=== PATIENT | female | born 1940 | race Caucasian/White ===

== ENCOUNTER 2021-11-06 11:45 | Emergency (ER) | payer MEDICARE, OTHER, SELFPAY ==
[2021-11-06 11:57] VITALS: BP 151/75; PULSE 68; RESP 16; TEMP 36.3; O2SAT 99; BMI 23.0
--- NOTE | 2021-11-06 12:07 | DI.RAD.S_ITS ---
PROCEDURE: XR HUMERUS RT 2V INDICATIONS: fall with pain and bruising TECHNIQUE: 2 views of the humerus were acquired. COMPARISON: None. FINDINGS: Bones: No acute fracture or dislocation. Severe degenerative changes are present at the glenohumeral joint including deformity of the femoral head, osteophytosis and heterotopic ossification.. No other suspicious bony lesions. Soft tissues: No suspicious soft tissue calcifications. IMPRESSION: Severe glenohumeral joint deformity. No acute radiographic findings. If pain persists, followup imaging in 5-7 days is recommended to exclude occult fracture. Dictated by: Mariola Kenney M.D. on 11/06/2021 at 13:03 Approved by: Mariola Kenney M.D. on 11/06/2021 at 13:04
--- NOTE | 2021-11-06 12:07 | DI.RAD.S_ITS ---
PROCEDURE: XR HAND RT MIN 3V INDICATIONS: fall with pain, swelling TECHNIQUE: 3 views of the hand(s) acquired. COMPARISON: None. FINDINGS: Bones: Severe degenerative changes are present at the interphalangeal joints, 1st CMC joint, and triscaphe joint. There is likely ulnar styloid fracture; however this may be a chronic non unified fracture. No other acute fractures visualized. Soft tissues: No suspicious soft tissue calcifications. IMPRESSION: 1. Chronic appearing ulnar styloid fracture. However, if the patient endorses pinpoint tenderness in this region, acute fracture could be suspected. 2. No other displaced fractures visualized. 3. 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 Dictated by: Mariola Kenney M.D. on 11/06/2021 at 13:04 Approved by: Mariola Kenney M.D. on 11/06/2021 at 13:06
--- NOTE | 2021-11-06 13:50 | ED_ITS ---
HPI - Extremity Injury (Upper) General Chief Complaint: Extremity Injury, Upper Stated Complaint: fell and injured right hand Time Seen by Provider: 11/06/21 12:07 Source: patient Mode of arrival: Ambulatory History of Present Illness HPI narrative: 81-year-old female nonsmoker with noncontributing medical history presents with her daughter and a chief complaint of a mechanical, ground level fall just prior to arrival in which she injured the lateral part of her upper arm and her right hand. She states that she got her feet head of herself while attempting to enter a trailerand tripped and fell onto her right hand and arm. She denies any head neck or back pain. She denies any chest pain or shortness of breath. She denies prodromal symptoms such as dizziness, weakness or lightheadedness. She has no pain in her shoulder but complains of some pain surrounding a small bruise in the lateral portion of her upper arm, pain is worse with motion and improves with rest. She has little pain in her elbow but does have some swellin g and also has pain in the fingers of her right hand which are worse with motion and improves with rest. Related Data Allergies Allergy/AdvReac Type Severity Reaction Status Date / Time Sulfa (Sulfonamide Allergy Verified 11/06/21 11:57 Antibiotics) Review of Systems Review of Systems Narrative: GENERAL: Denies chills, fatigue, malaise, fever, sweats. HEENT: Denies sinus pain, ear pain, sore throat, difficulty swallowing, dizzin ess. RESPIRATORY: Denies dyspnea, cough, wheezing, hemoptysis, sputum. CARDIOVASCULAR: Denies chest pain, palpitations, orthopnea, edema, GASTROINTESTINAL: Denies nausea, vomiting, abdominal pain, diarrhea, constipation, melena. : Denies dysuria, frequency, incontinence, hematuria, urinary retention. MUSCULOSKELETAL: See HPI SKIN: Denies rash, skin lesions, or other NEUROLOGIC: Denies weakness, headache, numbness, change in speech, confusion, seizures, incoordination. PSYCHIATRIC: No concerning psychosocial issues. 12 point review of systems is negative except for those stated above Patient History Social History Smoking Status: Never smoker Smoking Status: Never smoker Substance Use Type: does not use Exam Narrative Exam Narrative: GENERAL: [81] year old patient appears stated age. Well-developed patient, in mild distress. GCS 15 HEAD: Atraumatic. Normocephalic. EYES: Pupils equal round and reactive. Extraocular motions intact. No scleral icterus. No injection or drainage. ENT: Nose without bleeding, purulent drainage. Throat without erythema, tonsillar hypertrophy or exudate. Airway patent. NECK: Trachea midline. Non tender CARDIOVASCULAR: Regular rate and rhythm without murmurs, gallops, or rubs. RESPIRATORY: Clear to auscultation. Breath sounds equal bilaterally. No wheezes, rales, or rhonchi. GASTROINTESTINAL: Abdomen soft, non-tender, nondistended. EXTREMITIES: Full painless range of motion at right shoulder. There is a small bruise a few cm across with minimal swelling in the lateral aspect of her right upper arm. Tender to palpation of the soft tissues but minimal if any tenderness when pushing deep to the bone. She has full largely painless range o f motion at the right elbow and wrist, she does have some pain and swelling on the dorsum of right hand and fingers which increases with range of motion. Her injuries are closed and neurovascularly intact BACK: Nontender without deformity or crepitance. No flank tenderness. NEURO: AOx3. SKIN: No rash or erythema of visible areas Initial Vital Signs Initial Vital Signs: Vital Signs Temperature 97.4 F L 11/06/21 11:57 Pulse Rate 68 11/06/21 11:57 Respiratory Rate 16 11/06/21 11:57 Blood Pressure 151/75 H 11/06/21 11:57 Pulse Oximetry 99 11/06/21 11:57 Procedures Orthopedic Splinting/Casting Injury #1: Upper Extremity Injury Location: upper arm Upper Extremity Immobilizer: sling/shoulder immobilizer Post splinting neuro exam: intact Post splinting vascular exam: intact Placed by: Nursing Course Orders Ordered: ED Orders 11/06/21 12:07 XR hand RT min 3V Stat XR humerus RT 2V Stat Vital Signs Vital signs: Vital Signs - 8 hr 11/06/21 14:20 Pulse Rate 69 Respiratory Rate 16 Blood Pressure 140/91 H Pulse Oximetry 99 MDM - Extremity Injury (Upper) Imaging Data Extremity x-ray #1: Radiologist's Impression: Nery Garcia??81??F??1940 ? Allergy/Adv: Sulfa (Sulfonamide Antibiotics) (More??) Close Humerus X-Ray (Signed) PablitoLiliaMariola - 11/06/21 Hand X-Ray (Signed) PablitoMariola - 11/06/21 Launch?Image [address] [address] XRay Report Signed Patient: Nery Garcia MR#: [id number] : 1940 Acct:[id number] Age/Sex: 81 / F Date of Service: 11/06/21 Loc: ED Accession Number: [id number] ?? Procedure: XR humerus RT 2V Ordering Provider: Wade Gonzalez D.O. PROCEDURE:? XR HUMERUS RT 2V ? INDICATIONS:? fall with pain and bruising ? TECHNIQUE:? 2 views of the humerus were acquired.? ? COMPARISON:? None. ? FINDINGS:? ? Bones:? No acute fracture or dislocation.? Severe degenerative changes are present at the glenohumeral joint including deformity of the femoral head, osteophytosis and heterotopic ossification..? No other suspicious bony lesions. ? Soft tissues:? No suspicious soft tissue calcifications.? ? IMPRESSION:? Severe glenohumeral joint deformity. No acute radiographic findings. If pain persists, followup imaging in 5-7 days is recommended to exclude occult fracture. ? ? Dictated by: Mariola Kenney M.D. on 11/06/2021 at 13:03 ? [place] [address] XRay Report Signed Patient: Nery Garcia MR#: [id number] : 1940 Acct:[id number] Age/Sex: 81 / F Date of Service: 11/06/21 Loc: ED Accession Number: [id number] ?? Procedure: XR hand RT min 3V Ordering Provider: Wade Gonzalez D.O. PROCEDURE:? XR HAND RT MIN 3V ? INDICATIONS:? fall with pain, swelling ? TECHNIQUE:? 3 views of the hand(s) acquired.? ? COMPARISON:? None. ? FINDINGS:? ? Bones:? Severe degenerative changes are present at the interphalangeal joints, 1st CMC joint, and triscaphe joint.? There is likely ulnar styloid fracture; however this may be a chronic non unified fracture.? No other acute fractures visualized. ? Soft tissues:? No suspicious soft tissue calcifications.? ? ? IMPRESSION:? ? 1. Chronic appearing ulnar styloid fracture.? However, if the patient endorses pinpoint tenderness in this region, acute fracture could be suspected. ? 2. No other displaced fractures visualized. ? 3. 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 ? ? Dictated by: Mariola Kenney M.D. on 11/06/2021 at 13:04 ? ? Approved by: Mariola Kenney M.D. on 11/06/2021 at 13:06 ? Discharge Plan Departure Patient Disposition: Home Clinical Impression: Finger sprain, Arm contusion Instructions: DI for Contusion, DI for Finger Sprain Activity Restrictions/Additional Instructions: *You have been diagnosed with [fall with sprain and contusion, however no evidence of fracture or dislocation on imaging. *What to do: *Please continue to take your regular medications as directed. [ ] New medication prescriptions sent to your pharmacy: [ ] [ ] New medication written as a paper prescription [ x] No new medications given *Please follow up with your primary care provider in 2-3 days, call for an appointment. Let them know you were seen in the Emergency Department and that we ask that you be seen in follow up. We will electronically transmit a record of today's note if your PCP is in our system *If you do not have a primary care provider please contact the [facility] Resource line at [phone]. They will ask some questions about your medical history and help get you set up with a doctor in the community. *Return to Emergency Department if you should have any new, worsening or concerning symptoms, such as [fever greater than 101 F, shaking chills, worsening pain, persistent vomiting or other bothersome symptoms]
[2021-11-06 14:20] VITALS: BP 140/91; PULSE 69; RESP 16; O2SAT 99
== END 2021-11-06 14:20 | disposition home or self-care (01) ==
PROVIDERS: Emergency Provider Emergency Medicine
DX: S63.619A Unspecified sprain of unspecified finger, initial encounter (principal); S40.021A Contusion of right upper arm, initial encounter; W18.30XA Fall on same level, unspecified, initial encounter
CPT/HCPCS: 73060; 73130; 99283